=== PATIENT | male | born 1940 | race Caucasian/White ===

== ENCOUNTER 2020-03-30 18:47 | Emergency (ER) | payer MEDICARE, OTHER ==
[~2020-03-30] VITALS: Ht 182.9 cm; Wt 90.9 kg
--- NOTE | 2020-03-30 19:39 | NUR ---
Patient was found with old feces and urine in his depend. Patient was thorughly cleaned and prominent sacral redness was present.
[2020-03-30 19:40] LABS: CLARITY,URINE CLEAR (Clear); COLOR,URINE YELLOW (Yellow); GLUCOSE, URINE NEGATIVE (Neg); KETONES,URINE TRACE mg/dl (Neg); LEUKOCYTE ESTERASE ,URINE SMALL (Neg); NITRITES, URINE NEGATIVE (Neg); OCCULT BLOOD,URINE NEGATIVE (Neg); PH,URINE 5.5 (4.8-8.0); PROTEIN,URINE NEGATIVE (Neg)
[2020-03-30 19:49] LABS: UA COLLECTION TYPE NON-SPECIFIED
[2020-03-30 19:50] LABS: BACTERIA,URINE FEW /HPF (Neg); RBC,URINE 0-2 /HPF (0-2); SQUAMOUS EPITHELIAL CELL,UR FEW /LPF (FEW); WBC,URINE 0-4 /HPF (0-4)
--- NOTE | 2020-03-30 20:32 | NUR ---
[facility] CALLED FOR TRANSPORT. 30 MINUTE ETA
[2020-03-30 21:10] VITALS: BP 119/77
== END 2020-03-30 21:14 | disposition home or self-care (01) ==
LOC: ER 18:48
DX: F03.90 Unspecified dementia, unspecified severity, without behavioral disturbance, psychotic disturbance, mood disturbance, and anxiety (principal); Z20.828 Contact with and (suspected) exposure to other viral communicable diseases; W19.XXXA Unspecified fall, initial encounter; Z91.81 History of falling; Y93.89 Activity, other specified; Y92.128 Other place in nursing home as the place of occurrence of the external cause; Y99.8 Other external cause status
CPT/HCPCS: 70450; 81001; 87635; 99284; C9803

== ENCOUNTER 2020-04-19 17:11 | Emergency (ER) | payer MEDICARE, OTHER ==
[~2020-04-19] VITALS: Ht 172.7 cm; Wt 69.5 kg
--- NOTE | 2020-04-19 17:29 | NUR ---
Patient [facility] with increasing lethargy and suspected UTI. HX. OF CAD, DEPRESSION, HYPOTHYROIDISM,ALZHEIMERS.
--- NOTE | 2020-04-19 18:56 | NUR ---
Patient to CT SCAN
--- NOTE | 2020-04-19 19:29 | NUR ---
Attempted to cath pt for urine sample. No urine obtained at this time. Bladder scanned Pt with 164ml found in bladder. Condom cath applied to patient to ensure getting urine if he has episode of incontinance. Dr Boland notified.
[2020-04-19 21:09] LABS: CLARITY,URINE CLEAR (Clear); COLOR,URINE YELLOW (Yellow); GLUCOSE, URINE NEGATIVE (Neg); KETONES,URINE 15 mg/dl (Neg); LEUKOCYTE ESTERASE ,URINE SMALL (Neg); NITRITES, URINE POSITIVE (Neg); OCCULT BLOOD,URINE LARGE (Neg); PROTEIN,URINE NEGATIVE (Neg)
[2020-04-19 21:10] LABS: UA COLLECTION TYPE NON-SPECIFIED
[2020-04-19 21:14] LABS: BACTERIA,URINE 2+ /HPF (Neg); RBC,URINE 20-50 /HPF (0-2); SQUAMOUS EPITHELIAL CELL,UR FEW /LPF (FEW)
[2020-04-19] MEDS ORDERED: CEFD300C3 PO (21:35)
--- NOTE | 2020-04-19 22:19 | NUR ---
CALLED [facility] NO ONE ANSWERED
[2020-04-19 22:38] VITALS: BP 128/76
--- NOTE | 2020-04-19 22:39 | NUR ---
Pt resting awaiting transfer back to [place]
--- NOTE | 2020-04-20 00:22 | NUR ---
[facility] here to [facility] pt. Called [facility] and talked to Emily regarding pt condition.
== END 2020-04-20 00:25 | disposition home or self-care (01) ==
LOC: ER 17:11
DX: N39.0 Urinary tract infection, site not specified (principal); R26.89 Other abnormalities of gait and mobility; F03.90 Unspecified dementia, unspecified severity, without behavioral disturbance, psychotic disturbance, mood disturbance, and anxiety; R10.84 Generalized abdominal pain; Z88.8 Allergy status to other drugs, medicaments and biological substances; Z79.2 Long term (current) use of antibiotics; Z66 Do not resuscitate
CPT/HCPCS: 70450; 81001; 87077; 87088; 87186; 93005; 99285

== ENCOUNTER 2020-05-24 08:46 | Emergency (ER) | payer MEDICARE, OTHER ==
[~2020-05-24] VITALS: Ht 188 cm; Wt 65.0 kg
[2020-05-24] MEDS ORDERED: OLANZapine 2.5MG tablet PO ONE (09:00)
[2020-05-24] MEDS ORDERED: normal saline 1000ML IV soln IVB ONE (09:00)
[2020-05-24] MEDS ORDERED: LORazepam 2 mg/ml vial IV ONE (09:00)
[2020-05-24 09:49] LABS: BASOPHILS % (AUTO) 0.3 % (0-1); EOSINOPHILS # (AUTO) 0.1 X10'3 (0-0.9); HEMATOCRIT 38.6 % (42.0-52.0); HEMOGLOBIN 12.8 g/dl (14.0-17.9); LYMPHOCYTES # (AUTO) 0.7 X10'3 (1.1-4.8); LYMPHOCYTES % (AUTO) 7.6 % (21-51); MEAN CORPUSCULAR HEMOGLOBIN 31.4 PG (27.0-31.0); MEAN CORPUSCULAR HGB CONC 33.2 g/dL (33.0-36.5); MEAN CORPUSCULAR VOLUME 94.7 FL (78-98); MEAN PLATELET VOLUME 9.4 FL (7.4-10.4); MONOCYTES # (AUTO) 0.6 X10'3 (0-0.9); MONOCYTES % (AUTO) 7.1 % (2-12); NEUTROPHILS # (AUTO) 7.7 X10'3 (1.8-7.7); PLATELET COUNT 278 X10'3 (140-440); RED BLOOD COUNT 4.08 X10'6 (4.70-6.10); WHITE BLOOD COUNT 9.2 X10'3 (4.5-11.0)
[2020-05-24 10:12] LABS: ALANINE AMINOTRANSFERASE 37 U/L (12-78); ALBUMIN 2.9 G/DL (3.4-5.0); ALBUMIN/GLOBULIN RATIO 0.7 (1.1-1.5); ALKALINE PHOSPHATASE 205 IU/L (46-116); ANION GAP 8 (8-16); ASPARTATE AMINO TRANSFERASE 30 U/L (10-37); BILIRUBIN,TOTAL 0.4 MG/DL (0.1-1.0); BLOOD UREA NITROGEN 10 MG/DL (7-18); BUN/CREATININE RATIO 11.5 (5.4-32.0); CALCIUM 8.7 MG/DL (8.5-10.1); CHLORIDE 108 MMOL/L (99-107); CREATININE 0.87 MG/DL (0.60-1.10); GLUCOSE 127 MG/DL (70-104); POTASSIUM 3.8 MMOL/L (3.5-5.1); SODIUM 143 MMOL/L (135-145); TOTAL CARBON DIOXIDE 27.2 MMOL/L (24-32); TROPONIN I 0.06 NG/ML (0.0-0.05); eGFR 85 ML/MIN
[2020-05-24] MEDS ORDERED: aspirin 81mg tab.chew PO ONE (10:30)
--- NOTE | 2020-05-24 10:35 | NUR ---
Pt reported to have had an episode of shaking at his facility this morning. See Provider notes for further information.
[2020-05-24 10:38] LABS: CLARITY,URINE SLIGHTLY CLOUDY (Clear); COLOR,URINE YELLOW (Yellow); GLUCOSE, URINE NEGATIVE (Neg); KETONES,URINE NEGATIVE (Neg); LEUKOCYTE ESTERASE ,URINE NEGATIVE (Neg); NITRITES, URINE NEGATIVE (Neg); OCCULT BLOOD,URINE SMALL (Neg); PROTEIN,URINE NEGATIVE (Neg); UROBILINOGEN,URINE 0.2 E.U/dL (0.2-1.0)
[2020-05-24 10:40] LABS: UA COLLECTION TYPE STRAIGHT CATH
[2020-05-24 10:48] LABS: MUCUS STRANDS MANY /LPF (Neg); TRANSITIONAL EPI CELLS,URINE FEW /HPF
[2020-05-24 10:49] LABS: FINE GRANULAR CAST 0-3 /LPF (NEGATIVE); SQUAMOUS EPITHELIAL CELL,UR MODERATE /LPF (FEW)
[2020-05-24 10:50] LABS: BACTERIA,URINE NONE SEEN /HPF (Neg); WBC,URINE 0-4 /HPF (0-4)
[2020-05-24 13:18] VITALS: BP 103/67
== END 2020-05-24 13:23 | disposition home or self-care (01) ==
LOC: ER 08:46
DX: R56.9 Unspecified convulsions (principal); E78.00 Pure hypercholesterolemia, unspecified; E03.9 Hypothyroidism, unspecified; Z88.8 Allergy status to other drugs, medicaments and biological substances
CPT/HCPCS: 36415; 70450; 71045; 80053; 81001; 82948; 84484; 85025; 93005; 96374; 99285; J2060; J7030; 96361

== ENCOUNTER 2020-07-12 08:40 | Emergency (ER) | payer MEDICARE, OTHER ==
[~2020-07-12] VITALS: Ht 177.8 cm; Wt 165.0 kg
[2020-07-12] MEDS ORDERED: normal saline 1000ML IV soln IVB ONE (09:55)
[2020-07-12] MEDS ORDERED: LORazepam 2 mg/ml vial IV ONE (09:55)
[2020-07-12] MEDS ORDERED: magnesium 2GM in 50ml NS 50 ML IV ONE (09:55)
[2020-07-12 10:40] LABS: BASOPHILS % (AUTO) 0.5 % (0-1); EOSINOPHILS % (AUTO) 0.7 % (0-6); HEMOGLOBIN 13.1 g/dl (14.0-17.9); LYMPHOCYTES # (AUTO) 0.6 X10'3 (1.1-4.8); LYMPHOCYTES % (AUTO) 8.6 % (21-51); MEAN CORPUSCULAR HGB CONC 32.7 g/dL (33.0-36.5); MEAN CORPUSCULAR VOLUME 94.8 FL (78-98); MEAN PLATELET VOLUME 9.8 FL (7.4-10.4); MONOCYTES # (AUTO) 0.7 X10'3 (0-0.9); MONOCYTES % (AUTO) 10.4 % (2-12); NEUTROPHILS # (AUTO) 5.2 X10'3 (1.8-7.7); NEUTROPHILS % (AUTO) 79.8 % (42-75); PLATELET COUNT 170 X10'3 (140-440); RED BLOOD COUNT 4.22 X10'6 (4.70-6.10); RED CELL DISTRIBUTION WIDTH 15.1 % (11.5-14.5); WHITE BLOOD COUNT 6.5 X10'3 (4.5-11.0)
[2020-07-12 11:06] LABS: ALANINE AMINOTRANSFERASE 18 U/L (12-78); ALBUMIN 3.3 G/DL (3.4-5.0); ALBUMIN/GLOBULIN RATIO 0.9 (1.1-1.5); ALKALINE PHOSPHATASE 101 IU/L (46-116); ANION GAP 10 (8-16); ASPARTATE AMINO TRANSFERASE 24 U/L (10-37); BILIRUBIN,TOTAL 0.7 MG/DL (0.1-1.0); BLOOD UREA NITROGEN 10 MG/DL (7-18); CALCIUM 9.1 MG/DL (8.5-10.1); CHLORIDE 107 MMOL/L (99-107); CREATININE 0.77 MG/DL (0.60-1.10); GLUCOSE 98 MG/DL (70-104); POTASSIUM 4.2 MMOL/L (3.5-5.1); SODIUM 143 MMOL/L (135-145); TOTAL CARBON DIOXIDE 25.9 MMOL/L (24-32); eGFR > 90 ML/MIN
[2020-07-12 12:01] LABS: CLARITY,URINE CLOUDY (Clear); COLOR,URINE YELLOW (Yellow); GLUCOSE, URINE NEGATIVE (Neg); KETONES,URINE NEGATIVE (Neg); LEUKOCYTE ESTERASE ,URINE NEGATIVE (Neg); NITRITES, URINE NEGATIVE (Neg); OCCULT BLOOD,URINE NEGATIVE (Neg); PH,URINE 7.5 (4.8-8.0); PROTEIN,URINE TRACE mg/dl (Neg); UROBILINOGEN,URINE 0.2 E.U/dL (0.2-1.0)
[2020-07-12 12:08] LABS: UA COLLECTION TYPE STRAIGHT CATH
[2020-07-12 12:10] LABS: AMORPHOUS PHOSPHATES 3+
[2020-07-12 12:11] LABS: BACTERIA,URINE 1+ /HPF (Neg); MUCUS STRANDS MODERATE /LPF (Neg); RBC,URINE 0-2 /HPF (0-2); SQUAMOUS EPITHELIAL CELL,UR FEW /LPF (FEW); WBC,URINE 0-4 /HPF (0-4)
[2020-07-12 14:08] VITALS: BP 119/70
== END 2020-07-12 14:11 | disposition home or self-care (01) ==
LOC: ER 08:40
DX: G40.909 Epilepsy, unspecified, not intractable, without status epilepticus (principal); G30.9 Alzheimer's disease, unspecified; F02.80 Dementia in other diseases classified elsewhere, unspecified severity, without behavioral disturbance, psychotic disturbance, mood disturbance, and anxiety; F41.9 Anxiety disorder, unspecified; E78.00 Pure hypercholesterolemia, unspecified; E07.9 Disorder of thyroid, unspecified; Z88.8 Allergy status to other drugs, medicaments and biological substances
CPT/HCPCS: 36415; 71045; 80053; 81001; 85025; 93005; 96365; 96366; 96375; 99285; J2060; J3475; J7030; 99284